=== PATIENT | male | born 1995 | race Caucasian/White ===

== ENCOUNTER 2018-03-08 21:53 | Emergency (ER) | payer BC, OTHER ==
[2018-03-08] MEDS ORDERED: 0.9 % SODIUM CHLORIDE 1,000 ML IV ONE (22:25)
[2018-03-08 22:51] LABS: BASOPHILS % 0.5 (0.0-1.5); EOSINOPHILS % 0.6 % (0.0-6.8); MEAN CORPUSCULAR HEMOGLOBIN 29.4 pg (28.0-34.0); MONOCYTES % 8.4 % (0.0-11.0); NEUTROPHILS # 2.3 # k/uL (1.4-7.7)
[2018-03-08 22:54] LABS: eGFR (Non-African) > 60
--- NOTE | 2018-03-08 23:02 | ED Physician Documentation ---
General Adult - HISTORIAN Historian: patient - HPI Stated Complaint: dizziness Chief Complaint: General Adult Further Comments: yes (22 year old male patient presents with complaint of near syncopal episode at work this afternoon around 1600. Patient became dizzy and lowered himself to the ground. Patient reports 4 episodes of dizziness in the past few days. No LOC.) - ROS CONST: no problems EYES/ENT: none CVS/RESP: none GI/: none MS/SKIN/LYMPH: none NEURO/PSYCH: dizziness. 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12) Allergies/Adverse Reactions: Allergies Allergy/AdvReac Type Severity Reaction Status Date / Time Penicillins Allergy Verified 03/08/18 22:46 Sulfa (Sulfonamide Allergy Verified 03/08/18 22:46 Antibiotics) Home Medications: Ambulatory Orders Medication Instructions Recorded Venlafaxine HCl [Venlafaxine HCl 75 mg PO D 03/08/18 ER] - SOCIAL HX Smoking History: non-smoker Drug Use: marijuana (last used yesterday) - FAMILY HX Family History: No - VITAL SIGNS Vital Signs: Vital Signs Temp Pulse Resp BP Pulse Ox 98.5 F 74 16 133/53 99 03/08/18 22:36 03/08/18 22:36 03/08/18 22:36 03/08/18 22:36 03/08/18 22:36 - REVIEWED ASSESSMENTS Nursing Assessment Reviewed: Yes Vitals Reviewed: Yes Progress - Progress Progress: Glucose 69 - patient drank OJ Extensive discussion on lab, glucose, stop using marijuana. Patient verbalized understanding. ED Results Lab/Radiology - Lab Results Lab Results: Lab Results 03/08/18 03/08/18 03/08/18 22:25 22:25 22:25 WBC 5.00 K/ul K/ul (4.00-12.00) RBC 5.21 M/ul H M/ul (3.90-5.20) Hgb 15.3 g/dL g/dL (12.0-18.0) Hct 45.4 % % (37.0-53.0) MCV 87.0 fl fl (80.0-100.0) MCH 29.4 pg pg (28.0-34.0) MCHC 33.8 g/dL g/dL (30.0-36.0) RDW 13.8 % % (11.3-14.3) Plt Count 207 K/mm3 K/mm3 (130-400) Neut % (Auto) 45.5 % % (39.0-79.0) Lymph % (Auto) 45.0 % % (16.0-50.0) Harmon % (Auto) 8.4 % % (0.0-11.0) Eos % (Auto) 0.6 % % (0.0-6.8) Baso % (Auto) 0.5 (0.0-1.5) Neut # (Auto) 2.3 # k/uL # k/uL (1.4-7.7) Lymph # (Auto) 2.3 # k/uL # k/uL (0.6-4.0) Harmon # (Auto) 0.4 # k/uL # k/uL (0.0-0.9) Eos # (Auto) 0.0 # k/uL # k/uL (0.0-0.6) Baso # (Auto) 0.0 # k/uL # k/uL (0.0-0.5) Sodium 136 mmol/L mmol/L (136-145) Potassium 3.9 mmol/L mmol/L (3.5-5.1) Chloride 101 mmol/L mmol/L (98-107) Carbon Dioxide 29 mmol/L mmol/L (22-30) BUN 13 mg/dL mg/dL (9-20) Creatinine 0.80 mg/dL mg/dL (0.66-1.25) Estimated Creat Clear 149 Est GFR ( Amer) > 60 (60 - ) Est GFR (Non-Af Amer) > 60 (60 - ) Glucose 69 mg/dL L mg/dL (74-106) Calcium 9.1 mg/dL mg/dL (8.4-10.2) Total Bilirubin 1.5 mg/dL H mg/dL (0.2-1.3) AST 31 U/L U/L (15-46) ALT 29 U/L U/L (13-69) Alkaline Phosphatase 80 U/L U/L (38-126) Troponin I < 0.03 ng/mL L ng/mL (0.03-0.06) Total Protein 6.9 g/dL g/dL (6.3-8.2) Albumin 4.5 g/dL g/dL (3.5-5.0) - Orders Orders: ED Orders Category Date Time Status Continuous EKG monitoring Q30M Care 03/08/18 22:25 Active Orthostatics 1T Care 03/08/18 22:[address] IV Lock 1T Care 03/08/18 22:25 Active CBC/PLATELET/DIFF Stat Lab 03/08/18 22:25 Completed CMP Stat Lab 03/08/18 22:25 Completed TROPONIN I (cTnI) Stat Lab 03/08/18 22:25 Completed 0.9 % Sodium Chloride [Normal Saline] 1,000 ml Med 03/08/18 22:25 Discontinued IV NOW EKG WITH COMPARISON Stat Ther 03/08/18 22:25 Ordered General Adult Physical Exam - PHYSICAL EXAM GENERAL APPEARANCE: [id number] N EENT: eye inspection normal, ENT inspection normal, pharynx normal, no signs of dehydration, JAVAD, no nystagmus, TM's nml RESPIRATORY: no resp distress, chest non-tender, breath sounds normal CVS: reg rate & rhythm, heart sounds normal, equal pulses, no murmur, no gallop, PMI nml, no JVD, no friction rub, 24 ABDOMEN: soft, no organomegaly, normal bowel sounds, no abdominal bruit, no distension SKIN: normal color, warm/dry, NR, INT, PAL, DR EXTREMITIES: non-tender, normal range of motion, no evidence of injury, no edema, J, [employer] NEURO: oriented X3, CN's nml as tested, motor nml, sensation nml, mood/affect nml Discharge Clincal Impression: Near syncope Referrals: Ashley Hsu PRN [Primary Care Provider] - 2 Days Additional Instructions: Rest Follow up with PCP this week. Condition: Stable Disposition: 01 HOME, SELF-CARE Decision to Admit: NO Decision Time: 23:07
[2018-03-08 23:18] VITALS: BP 112/79
== END 2018-03-08 23:10 | disposition home or self-care (01) ==
LOC: ED 21:53
DX: R55 Syncope and collapse (principal)
CPT/HCPCS: 36415; 80053; 84484; 85025; 93005; 96365; 99282; 99284; J7030; S1016

== ENCOUNTER 2018-03-21 07:02 | Emergency (ER) | payer OTHER ==
--- NOTE | 2018-03-21 08:29 | ED Physician Documentation ---
General Adult - HISTORIAN Historian: patient - HPI Stated Complaint: Left ear pain Chief Complaint: General Adult Onset: hours Timing: still present Severity: moderate Further Comments: yes (Pt is 22 yo male who had bleeding from his L ear after poking the ear canal with a part of some headphones. Pt thought he was all right when he went to bed, but this morning woke with his outer ear covered in dried blood and with muffled hearing.) - ROS CONST: no problems EYES/ENT: other (L ear injury, bleeding) CVS/RESP: none GI/: none MS/SKIN/LYMPH: none - PAST HX Past History: other (anxiety/depression, ortho surgery) Allergies/Adverse Reactions: Allergies Allergy/AdvReac Type Severity Reaction Status Date / Time Penicillins Allergy Verified 03/08/18 22:46 Sulfa (Sulfonamide Allergy Verified 03/08/18 22:46 Antibiotics) Home Medications: Ambulatory Orders Medication Instructions Recorded Venlafaxine HCl [Venlafaxine HCl 75 mg PO D 03/08/18 ER] - SOCIAL HX Smoking History: non-smoker - FAMILY HX Family History: No - VITAL SIGNS Vital Signs: Vital Signs Temp Pulse Resp BP Pulse Ox 98.4 F 72 16 113/72 100 03/21/18 07:05 03/21/18 07:05 03/21/18 07:05 03/21/18 07:05 03/21/18 07:05 - REVIEWED ASSESSMENTS Nursing Assessment Reviewed: Yes Vitals Reviewed: Yes Progress - Progress Progress: upon flushing with warm water, a large clot was removed from pt's L ear canal and his hearing was restored to normal. TM appears intact, but there are two punctate lacerations that are bleeding slowly in the canal. Ear was packed with cotton and pt d/c'd home to remove cotton later today. General Adult Physical Exam - PHYSICAL EXAM GENERAL APPEARANCE: mild distress EENT: other (L outer ear covered with dried blood, dried blood in ear canal, with some bright red blood seen.) NECK: normal inspection, supple RESPIRATORY: no resp distress CVS: reg rate & rhythm, heart sounds normal BACK: normal inspection, no CVA tenderness SKIN: warm/dry, normal color EXTREMITIES: non-tender, normal range of motion NEURO: oriented X3, motor nml, sensation nml Discharge Clincal Impression: Bleeding, L ear canal Referrals: Ashley Hsu PRN [Primary Care Provider] - Condition: Good Disposition: 01 HOME, SELF-CARE Decision to Admit: NO Decision Time: 08:29
[2018-03-21 08:43] VITALS: BP 113/70
== END 2018-03-21 08:40 | disposition home or self-care (01) ==
LOC: ED 07:02
DX: S01.312A Laceration without foreign body of left ear, initial encounter (principal); X58.XXXA Exposure to other specified factors, initial encounter; Y93.89 Activity, other specified; Y92.9 Unspecified place or not applicable
CPT/HCPCS: 99282